=== PATIENT | female | born 1940 | race Caucasian/White ===

== ENCOUNTER 2018-12-29 12:28 | Observation (INO) | payer MEDICARE, BC ==
[~2018-12-29] VITALS: Ht 160 cm; Wt 79.0 kg
--- NOTE | 2018-12-29 12:34 | NUR ---
PT TO ROOM VIA EMS PT STATES THAT SHE WAS STANDING IN THE YARD TALKING TO NEIGHBORS AND HAD SUDDEN ONSET ON LIGHTHEAD/DIZZINESS. PT DENIES ANY LOC, C/P, SOB, N/V. STATES HAVING GENERAL MALAISE.PT IS AOX4.
[2018-12-29 13:11] LABS: IMMATURE GRANULOCYTES 0.5 % (0.0-5.0); MEAN CELL VOLUME 97.5 fL CALC (80.0-100.0); MEAN CORPUSCULAR HGB 31.6 pG CALC (26.0-32.0); MEAN CORPUSCULAR HGB CONC 32.4 g/L CALC (32.0-36.0); NEUT# 5.89 thou/uL (2.00-7.15); RED BLOOD COUNT 2.85 mill/uL (4.20-5.60); RED CELL DISTRI WIDTH 14.8 % (11.5-15.5)
[2018-12-29 13:12] LABS: HEMATOCRIT 27.8 % (37.0-47.0)
[2018-12-29 13:15] LABS: ALBUMIN 4.1 g/dL (3.2-5.0); ALKALINE PHOSPHATASE 78 u/l (38-126); ANION GAP 14 (6-22 (CALC)); BILIRUBIN, TOTAL 0.7 mg/dL (0.0-1.4); BUN 24 mg/dL (8-23); BUN/CREATININE RATIO 13 (12-20 (CALC)); CHLORIDE 109 mmol/l (95-108); CREATININE 1.8 mg/dL (0.5-1.0); GFR 27 ML/MIN (>=60 (CALC)); GFR FOR AFR.AMER. 33 ML/MIN (>=60 (CALC)); MAGNESIUM 2.2 mg/dL (1.6-2.3); PROTHROMBIN TIME 10.7 SECONDS (9.0-12.5); SGOT/AST 28 u/l (9-36); SODIUM 138 mmol/l (137-146); TOTAL PROTEIN 7.4 g/dL (6.3-8.2)
[2018-12-29 13:19] LABS: CARBON DIOXIDE 20 mmol/l (22-30)
--- NOTE | 2018-12-29 13:34 | NUR ---
PT AMBULATED TO RESTROOM AND BACK TO BED WITH STEADY GAIT
[2018-12-29] MEDS ORDERED: XARELTO10 MG PO (13:43)
[2018-12-29] MEDS ORDERED: LISINOPRIL20 MG PO (13:43)
[2018-12-29] MEDS ORDERED: TGT ASPIRIN81 MG PO (13:45)
[2018-12-29 13:56] LABS: URINE BILIRUBIN - DIPSTICK NEGATIVE (NEGATIVE); URINE BLOOD DIPSTICK NEGATIVE (NEGATIVE); URINE COLOR YELLOW; URINE GLUCOSE - DIPSTICK NEGATIVE (NEGATIVE); URINE KETONE NEGATIVE (NEGATIVE); URINE LEUK ESTERASE NEGATIVE (NEGATIVE); URINE NITRITE - DIPSTICK NEGATIVE (Negative); URINE PROTEIN - DIPSTICK NEGATIVE (NEG-TRACE); URINE UROBILINOGEN - DIPSTICK 0.2 E.U./dL (0.2)
--- NOTE | 2018-12-29 14:34 | NUR ---
PT RESTING ON STRETCHER, NO COMPLAINTS STATES AT THIS TIME.
--- NOTE | 2018-12-29 15:34 | NUR ---
PT SITTING ON BEDSIDE CHAIR, IV PATENT. NO COMPLAINTS STATED AT THIS TIME.
--- NOTE | 2018-12-29 16:20 | NUR ---
REPORT ATTEMPTED TO [facility]2
--- NOTE | 2018-12-29 16:52 | NUR ---
REPORT GIVEN TO ANGEL CORTEZ- ACCPETED PT
--- NOTE | 2018-12-29 17:10 | NUR ---
Admission Note Report Given to: ANGEL CORTEZ Transported by: X Wheelchair Stretcher Transported with: X Nurse Transporter X Patent IV O2 X Nail Polish Brush Machine Feeder [place] [facility] [place]
[2018-12-29 17:17] VITALS: BP 167/84
[2018-12-29 19:05] VITALS: BP 116/62
--- NOTE | 2018-12-29 19:51 | NUR ---
REPORT RECEIVED FROM INDIA TYLER ARRIVED ON UNIT @ 1705 VIA W/C BY ED STAFF AND SETTLED IN ROOM. ALERT AND ORIENTED X 4, DENIED DIZZINESS OR PAIN. ORIENTED TO ROOM AND CALL BAINS. C/O SWELLING AND ITCHING TO RAC, ON OBSERVATION OF SITE, SIRCULAR AREA WAS FOUND TO BE RED AND SWOLEN, AREA OUTLINED, LATER AREA OF SWELLING SPREAD LARGER. NIGHT RN AND FLEET DIRECTOR (VIRIDIANA) NOTIFIED, CONDITION WILL BE FORTHER ADDRESSED BY BENEFITS CONSULTANT.
--- NOTE | 2018-12-29 20:22 | NUR ---
SWELLING AND REDNESS IN LAC AT SITE OF IV CATHETER ALSO OBSERVED AND REPORTED
--- NOTE | 2018-12-29 21:51 | NUR ---
PATIENT RESTING IN BED-STILL WITH SOME REDNESS TO LEFT AC AROUND IV SITE AND TO RIGHT AC. HAS NOT EXPANDED ANY FURTHER. BENEDRYL 50MG IVP GIVEN AND SOLU-MEDROL 40MG IVP GIVEN FOR ALLERGIC REACTION. SAFETY PRECAUTIONS REINFORCED. CALL LIGHT IN REACH. WILL CONT TO MONITOR.
--- NOTE | 2018-12-30 | NUR ---
PATIENT APPEARS SLEEPING AT THIS TIME WITH EYES CLOSED. RESP ARE EVEN AND UNLABORED. CALL LIGHT IN REACH. WILL CONT TO MONITOR.
[2018-12-30 03:59] VITALS: BP 136/70
[2018-12-30 05:41] LABS: HEMATOCRIT 28.2 % (37.0-47.0); HEMOGLOBIN 9.1 g/dl (12.0-16.0); IMMATURE GRANULOCYTES 0.3 % (0.0-5.0); MEAN CELL VOLUME 96.2 fL CALC (80.0-100.0); MEAN CORPUSCULAR HGB 31.1 pG CALC (26.0-32.0); MEAN CORPUSCULAR HGB CONC 32.3 g/L CALC (32.0-36.0); NEUT# 6.72 thou/uL (2.00-7.15); RED BLOOD COUNT 2.93 mill/uL (4.20-5.60); RED CELL DISTRI WIDTH 14.7 % (11.5-15.5)
[2018-12-30 05:46] LABS: ALBUMIN 3.9 g/dL (3.2-5.0); BILIRUBIN, TOTAL 0.5 mg/dL (0.0-1.4); CREATININE 1.6 mg/dL (0.5-1.0); MAGNESIUM 2.2 mg/dL (1.6-2.3); POTASSIUM 4.7 mmol/l (3.5-5.1)
[2018-12-30 07:47] VITALS: BP 131/69
--- NOTE | 2018-12-30 08:44 | NUR ---
REPORT RECEIVED FROM DIEGO FITZPATRICK. PT IS SITTING IN RECLINER. MEDICATED PT WITH BENEDRYL FOR ITCHING IN HER ARMS SEE EMAR. ASSESSMENT DONE. TELE IN PLACE. PT DENIES PAIN AT THIS TIME. 20 LAC THAT APPEAR HEALTHY. SAFETY PRECAUTIONS REINFORCED AND CALL LIGHT IN REACH.
[2018-12-30 11:15] VITALS: BP 135/56
--- NOTE | 2018-12-30 12:00 | NUR ---
PT IS SITTING IN RECLINER EATING HER LUNCH. FRIEND IN ROOM. PT DENIES ANY NEEDS AT THIS TIME. CALL LIGHT IN REACH.
--- NOTE | 2018-12-30 15:49 | NUR ---
Discharge instructions given. Patient verbalizes understanding of same. Discharged in stable condition via Wheelchair to Home with friend. All belongings sent with pt.
== END 2018-12-30 15:49 | disposition home or self-care (01) ==
LOC: ED 12:28 → ED-I 15:32 → ED 16:04 → MS2 16:05
PROVIDERS: ADMIT Internal Medicine Nephrology; ATTEND Internal Medicine Nephrology
DX: D64.9 Anemia, unspecified (principal); E78.5 Hyperlipidemia, unspecified; I48.0 Paroxysmal atrial fibrillation; I12.9 Hypertensive chronic kidney disease with stage 1 through stage 4 chronic kidney disease, or unspecified chronic kidney disease; N18.3 Chronic kidney disease, stage 3 (moderate); R73.9 Hyperglycemia, unspecified; Z72.89 Other problems related to lifestyle; Z79.01 Long term (current) use of anticoagulants; R55 Syncope and collapse; R53.1 Weakness
CPT/HCPCS: G0378